=== PATIENT | female | born 1980 | race Caucasian/White ===

== ENCOUNTER 2016-08-23 01:32 | Emergency (ER) | payer MEDICAID | END 2016-08-23 05:00 | disposition home or self-care (01) | DX: R10.11 Right upper quadrant pain (principal); R10.31 Right lower quadrant pain; F17.200 Nicotine dependence, unspecified, uncomplicated ==

== ENCOUNTER 2017-06-29 23:11 | Emergency (ER) | payer MEDICAID ==
[2017-06-29 23:48] LABS: BILIRUBIN,URINE NEGATIVE (NEGATIVE); GLUCOSE, URINE (UA) NEGATIVE (NEGATIVE); KETONES,URINE (UA) NEGATIVE (NEGATIVE); LEUKOCYTE ESTERASE, URINE NEGATIVE (NEGATIVE); NITRITE,URINE NEGATIVE (NEGATIVE); OCCULT BLOOD,URINE LARGE (NEGATIVE); PROTEIN,URINE TRACE mg/dL (NEGATIVE); UROBILINOGEN,URINE 0.2 (NORMAL) E.U./dL (NORMAL)
[2017-06-29 23:50] LABS: CLARITY,URINE CLEAR (CLEAR); HCG UR QUAL POSITIVE
[2017-06-29] MEDS ORDERED: SODIUM CHLORIDE 0.9% 1,000 ML IV ONE (23:53)
[2017-06-30 00:19] LABS: BACTERIA,URINE None Seen /HPF (None Seen); MUCUS,URINE Marked Strands; SQUAMOUS EPITHELIAL CELL,UR RARE Squamous (<= Few)
[2017-06-30 00:20] LABS: BASOPHILS # (AUTO) 0.1 10^3/uL (0.0-0.1); BASOPHILS % (AUTO) 0.7 %; EOSINOPHILS # (AUTO) 0.2 10^3/uL (0.0-0.7); EOSINOPHILS % (AUTO) 1.3 %; HGB - HEMOGLOBIN 13.2 g/dL (12.0-16.0); LYMPHOCYTES # (AUTO) 2.1 10^3/uL (1.5-3.5); LYMPHOCYTES % (AUTO) 13.6 %; MEAN CORPUSCULAR HGB CONC 32.9 g/dL (32.0-36.0); MONOCYTES # (AUTO) 1.3 10^3/uL (0.0-1.0); MONOCYTES % (AUTO) 8.6 %; NEUTROPHILS # (AUTO) 11.7 10^3/uL (1.5-6.6); NEUTROPHILS % (AUTO) 75.8 %; PLT - PLATELET COUNT 264 10^3/uL (130-450); RED BLOOD COUNT 5.09 10^6/uL (4.20-5.40); RED CELL DISTRIBUTION WIDTH 15.6 % (12.0-15.0); WHITE BLOOD COUNT 15.4 x10^3/uL (4.8-10.8)
[2017-06-30 00:28] LABS: ALBUMIN 3.2 g/dL (3.2-5.5); ALBUMIN/GLOBULIN RATIO 0.7 (1.0-2.2); BILIRUBIN,TOTAL 0.5 mg/dL (0.2-1.0); CALCIUM 9.7 mg/dL (8.5-10.3); CREATININE 0.6 mg/dL (0.4-1.0); TOTAL PROTEIN 7.5 g/dL (6.7-8.2)
[2017-06-30] MEDS ORDERED: ACETAMINOPHEN 500 MG TABLET PO STA (00:51)
[2017-06-30] MEDS ORDERED: LIDOCAINE PATCH 5% TOP STA (00:51)
--- NOTE | 2017-06-30 00:53 | ED Physician Documentation ---
PD HPI TRUNK INJURY - Stated complaint Stated Complaint: COUGH/RT FLANK PX - Chief complaint Chief Complaint: Resp - History obtained from History obtained from: Patient, Family - History of Present Illness Location: Right chest Type of injury: Other (cough) Timing - onset: Today Timing - details: Abrupt onset, Still present Quality: Pain, Spasm Worsened by: Moving, Palpating Associated symtptoms: No: Numbness, Tingling, Swelling Where injury occured: Home Similar symptoms before: Diagnosis Recently seen: Not recently seen - Additional information Additional information: patient is a 36 year old female with no significant past medical history who is presenting to the emergency department for right sided rib pain. patient states that she had been coughing a lot recently. Today patient coughed hurting the right axillary region. Review of Systems Constitutional: denies: Fever, Chills Eyes: denies: Discharge, Irritation Ears: denies: Ear pain, Drainage/discharge Nose: denies: Rhinorrhea / runny nose, Congestion Throat: denies: Sore throat Cardiac: denies: Chest pain / pressure, Palpitations Respiratory: reports: Cough. denies: Wheezing GI: reports: Nausea. denies: Abdominal Pain, Vomiting, Constipation, Diarrhea : denies: Dysuria, Frequency, Hematuria, Discharge, Vaginal bleeding Skin: denies: Rash, Lesions Neurologic: denies: Generalized weakness, Focal weakness Immunocompromised: denies: Immunocompromised PD PAST MEDICAL HISTORY - Past Medical History Past Medical History: Yes Psych: Anxiety - Past Surgical History Past Surgical History: Yes General: Appendectomy - Present Medications Home Medications: Ambulatory Orders Medication Instructions Recorded Confirmed Lidocaine Patch 5% [Lidoderm Patch] 1 each TOP DAILY #20 patch 06/30/17 - Allergies Allergies/Adverse Reactions: Allergies Allergy/AdvReac Type Severity Reaction Status Date / Time nabumetone [From Relafen] Allergy Mild Hallucinati Verified 06/29/17 23:19 ons Sulfa (Sulfonamide Allergy Unknown unknown Verified 06/29/17 23:19 Antibiotics) - Social History Does the pt smoke?: Yes Smoking Status: Current every day smoker Does the pt drink ETOH?: No Does the pt have substance abuse?: Yes - Immunizations Immunizations are current?: Yes - POLST Patient has POLST: No PD ED PE NORMAL - Vitals Vital signs reviewed: Yes - General General: Alert and oriented X 3 - HEENT HEENT: Atraumatic, PERRL - Neck Neck: Supple, no meningeal sign - Cardiac Cardiac: RRR, No murmur - Respiratory Respiratory: No respiratory distress - Abdomen Abdomen: Soft, Non tender, Non distended - Female Female : Pt declined - Derm Derm: Normal color - Extremities Extremities: No deformity, Normal ROM s pain, No edema - Neuro Neuro: Alert and oriented X 3, No motor deficit, No sensory deficit, Normal speech - Psych Psych: Normal mood PD ED PE EXPANDED - General General: In Pain - HEENT HEENT: Dry mucous membranes - Cardiac Cardiac: Chest wall TTP (tenderness to palpation of right lateral chest, no step off, no gross deformity) Results - Vitals Vitals: Vital Signs - 24 hr 06/29/17 06/30/17 23:15 01:09 Temperature 36.7 C 36.9 C Heart Rate 105 H 100 Respiratory 20 20 Rate Blood Pressure 153/87 H 158/77 H O2 Saturation 100 100 Oxygen O2 Source Room air - Labs Labs: Laboratory Tests 06/29/17 06/29/17 06/29/17 00:04 00:04 00:04 WBC 15.4 H RBC 5.09 Hgb 13.2 Hct 40.2 MCV 79.0 L MCH 26.0 L MCHC 32.9 RDW 15.6 H Plt Count 264 MPV 9.0 Neut # 11.7 H Lymph # 2.1 Weakley # 1.3 H Eos # 0.2 Baso # 0.1 Absolute Nucleated RBC 0.02 Nucleated RBC % 0.1 Sodium 135 Potassium 3.9 Chloride 99 L Carbon Dioxide 24 Anion Gap 12.0 BUN 12 Creatinine 0.6 Estimated GFR (MDRD) 112 Glucose 138 H Calcium 9.7 Total Bilirubin 0.5 AST 18 ALT 19 Alkaline Phosphatase 71 Total Protein 7.5 Albumin 3.2 Globulin 4.3 H Albumin/Globulin Ratio 0.7 L Lipase 20 L HCG, Quant 06490.00 Urine Color Urine Clarity Urine pH Ur Specific Golden Urine Protein Urine Glucose (UA) Urine Ketones Urine Occult Blood Urine Nitrite Urine Bilirubin Urine Urobilinogen Ur Leukocyte Esterase Urine RBC Urine WBC Ur Squamous Epith Cells Urine Bacteria Urine Mucus Ur Microscopic Review Urine Culture Comments Urine HCG, Qual 06/29/17 23:34 WBC RBC Hgb Hct MCV MCH MCHC RDW Plt Count MPV Neut # Lymph # Weakley # Eos # Baso # Absolute Nucleated RBC Nucleated RBC % Sodium Potassium Chloride Carbon Dioxide Anion Gap BUN Creatinine Estimated GFR (MDRD) Glucose Calcium Total Bilirubin AST ALT Alkaline Phosphatase Total Protein Albumin Globulin Albumin/Globulin Ratio Lipase HCG, Quant Urine Color YELLOW Urine Clarity CLEAR Urine pH 6.0 Ur Specific Golden >=1.030 H Urine Protein TRACE Urine Glucose (UA) NEGATIVE Urine Ketones NEGATIVE Urine Occult Blood LARGE H Urine Nitrite NEGATIVE Urine Bilirubin NEGATIVE Urine Urobilinogen 0.2 (NORMAL) Ur Leukocyte Esterase NEGATIVE Urine RBC 6-10 H Urine WBC 4-5 Ur Squamous Epith Cells RARE Squamous Urine Bacteria None Seen Urine Mucus Marked Strands Ur Microscopic Review INDICATED Urine Culture Comments NOT INDICATED Urine HCG, Qual POSITIVE - Rads (name of study) pelvic ultrasound Radiology: Final report received (viable iup), EMP read contemporaneously PD MEDICAL DECISION MAKING - ED course Complexity details: reviewed old records, reviewed results, re-evaluated patient , considered differential, d/w patient, d/w family ED course: Patient was seen and examined at bedside. urine was collected and checked. Patient was found to be . labs were drawn and ultrasound was ordered. Patient was made aware of the findings. Patient was treated with tylenol and lidocaine patch. The first attempt at IV was unsuccessful and patient stated that she would just do oral hydration. patient did have blood in her urine and was made aware that the symptoms could be secondary to renal colic. Patient was given detailed discharge and follow up instructions. patient required no further work up and was stable for discharge with outpatient follow up. Departure - Departure Disposition: 01 Home, Self Care Clinical Impression: Condition: Good Instructions: ED Preg Established Normal Sxs Follow-Up: Uriel Smith MD [Provider Admit Priv/Credential] - Tomorrow Prescriptions: Lidocaine Patch 5% [Lidoderm Patch] 1 each TOP DAILY #20 patch Comments: You were found to be today with a viable intrauterine . Due to the we are limited in our pain management options. You can take tylenol and use your lidoderm patch. You should stay well hydrated because there is a chance that there is kidney stone. You should follow up with your ob , if you do not have one you can call Dr. Smith's office to schedule a follow up appointment. You are approximately 6 weeks by dates. You can return to the emergency department at any time for new, worsening or uncontrollable symptoms. Discharge Date/Time: 06/30/17 01:11
--- NOTE | 2017-06-30 01:01 | Ultrasound Preliminary Report ---
Exam: US OB FIRST TRIMESTER IMPRESSION: Single live intrauterine at 6 weeks 3 days by crown-rump length -- for an estim ated delivery date of 02/20/2018. No acute abnormality seen. [facility] SITE ID: [id number]
--- NOTE | 2017-06-30 01:09 | Ultrasound Report ---
EXAM: FIRST TRIMESTER OBSTETRIC ULTRASOUND (Less than 11 weeks) EXAM DATE: 06/30/2017 12:47 AM. CLINICAL HISTORY: , vaginal bleeding. LMP: 05/09/2017, 7 weeks 3 days. COMPARISONS: None. TECHNIQUE: Transabdominal ultrasound examination with static image documentation. FINDINGS: Gestational Sac: An intrauterine fluid-filled sac contains both an embryo and yolk sac. Embryo: CRL (crown-rump length) measures 5 mm corresponding to an estimated gestational age of 6 week s 3 days. Heart Rate: 120 beats per minute. Placenta: Not visible at this gestational age. Amniotic fluid: Not accurately assessed at this gestational age. Uterus: Unremarkable anteverted appearance. Cervix: Closed. Ovaries: Visualized portion of the right ovary appears normal. Left ovary reportedly not seen. No drake ge taken of the left adnexa. Exam reportedly limited due to patient coughing and crying. Free Fluid: None. Other: None. IMPRESSION: Single live intrauterine at 6 weeks 3 days by crown-rump length -- for an estimated deliver y date of 02/20/2018. No acute abnormality seen. [facility] Referring Provider Line: [phone] SITE ID: [id number]
[2017-06-30 01:11] VITALS: BP 158/77
== END 2017-06-30 01:11 | disposition home or self-care (01) ==
LOC: ED 23:11
DX: O26.891 Other specified pregnancy related conditions, first trimester (principal); R10.31 Right lower quadrant pain; O99.331 Smoking (tobacco) complicating pregnancy, first trimester; Z3A.01 Less than 8 weeks gestation of pregnancy
CPT/HCPCS: 36415; 76801; 80053; 81001; 81025; 83690; 84702; 85025; 99283; A9270; 81003; 87086

== ENCOUNTER 2018-01-17 07:08 | Outpatient (CLI) | payer MEDICAID ==
[2018-01-17 09:32] LABS: MUDS CUTOFF CONCENTRATIONS CUTOFF CONC BELOW:
[2018-01-17 09:36] LABS: BASOPHILS # (AUTO) 0.1 10^3/uL (0.0-0.1); BASOPHILS % (AUTO) 0.5 %; EOSINOPHILS # (AUTO) 0.2 10^3/uL (0.0-0.7); EOSINOPHILS % (AUTO) 0.8 %; HGB - HEMOGLOBIN 11.4 g/dL (12.0-16.0); LYMPHOCYTES # (AUTO) 2.1 10^3/uL (1.5-3.5); LYMPHOCYTES % (AUTO) 10.3 %; MEAN CORPUSCULAR HEMOGLOBIN 26.8 pg (27.0-31.0); MEAN CORPUSCULAR HGB CONC 33.8 g/dL (32.0-36.0); MEAN CORPUSCULAR VOLUME 79.3 fL (81.0-99.0); MEAN PLATELET VOLUME 8.9 fL (7.9-10.8); MONOCYTES # (AUTO) 1.2 10^3/uL (0.0-1.0); MONOCYTES % (AUTO) 5.8 %; NEUTROPHILS # (AUTO) 17.2 10^3/uL (1.5-6.6); NEUTROPHILS % (AUTO) 82.6 %; PLT - PLATELET COUNT 264 10^3/uL (130-450); RED BLOOD COUNT 4.25 10^6/uL (4.20-5.40); RED CELL DISTRIBUTION WIDTH 15.2 % (12.0-15.0); WHITE BLOOD COUNT 20.8 x10^3/uL (4.8-10.8)
[2018-01-17 09:47] LABS: AMPHETAMINE SCREEN,URINE NEGATIVE (NEGATIVE); BENZODIAZEPINES SCREEN, URINE NEGATIVE (NEGATIVE); COCAINE SCREEN URINE NEGATIVE (NEGATIVE); METHAMPHETAMINES SCREEN, URINE NEGATIVE (NEGATIVE); OPIATE SCREEN, URINE NEGATIVE (NEGATIVE); TRICYCLIC ANTIDEPRESSANT,URINE NEGATIVE (NEGATIVE)
[2018-01-17 09:48] LABS: METHADONE SCREEN, URINE NEGATIVE (NEGATIVE); OXYCODONE SCREEN, URINE NEGATIVE (NEGATIVE); PROPOXYPHENE SCREEN, URINE NEGATIVE (NEGATIVE)
[2018-01-17 09:59] LABS: CREATININE,URINE 121.9 mg/dL; PROTEIN/CREATININE RATIO,URINE 0.2 (<=0.2)
[2018-01-17 10:00] LABS: BILIRUBIN,URINE NEGATIVE (NEGATIVE); GLUCOSE, URINE (UA) 250 mg/dL (NEGATIVE); KETONES,URINE (UA) TRACE mg/dL (NEGATIVE); LEUKOCYTE ESTERASE, URINE TRACE (NEGATIVE); NITRITE,URINE NEGATIVE (NEGATIVE); OCCULT BLOOD,URINE NEGATIVE (NEGATIVE); PH,URINE 6.5 PH (5.0-7.5); PROTEIN,URINE TRACE mg/dL (NEGATIVE); UROBILINOGEN,URINE 0.2 (NORMAL) E.U./dL (NORMAL)
[2018-01-17 10:09] LABS: PLATELET ESTIMATE, MANUAL NORMAL (130-450,000) (NORMAL); PLATELET MORPHOLOGY NORMAL APPEARANCE (NORMAL)
[2018-01-17 10:14] LABS: CLARITY,URINE HAZY (CLEAR)
[2018-01-17 10:15] LABS: AMORPHOUS SEDIMENT,UR Few /LPF; BACTERIA,URINE Few /HPF (None Seen); MUCUS,URINE Few Strands; RBC,URINE None Seen /HPF (0-5); SQUAMOUS EPITHELIAL CELL,UR FEW Squamous (<= Few)
[2018-01-17 11:39] VITALS: BP 141/90
[2018-01-17 11:41] LABS: HB2 TOTAL 11.8 g/dL; HEMOGLOBIN A1C 0.57 g/dL; HEMOGLOBIN A1C % 6.6 % (4.6-6.2)
--- NOTE | 2018-01-17 12:29 | Ultrasound Report ---
Procedure Date: 01/17/2018 Accession Number: [id number] / [id number] Procedure: US - OB F/U or Repeat CPT Code: FULL RESULT: EXAM: COMPLETE OBSTETRICAL ULTRASOUND EXAM DATE: 01/17/2018 10:53 AM. CLINICAL HISTORY: dating, position, MIKE. COMPARISON: First trimester ultrasound 06/30/2017. TECHNIQUE: Real-time sonographic evaluation of the fetus performed by the high school librarian. Multiple herbicide service sales representative static images were saved for review. DATING: LMP unknown. EGA 35 weeks 1 day with KALI 02/20/2018 based on first ultrasound of 06/30/2017. EGA 37 weeks 1 day with KALI 02/06/2018 based on the current ultrasound. GENERAL EVALUATION White . Cardiac activity: 128 bpm. movement: Visualized. Presentation: Breech. Placenta: Posterior maternal left position. No convincing evidence of placenta previa. Umbilical cord: 3 vessel cord. Central placental cord origin. Amniotic fluid: MIKE 15.4 cm. MVP 5.0 cm. BIOMETRY Bi-Parietal Diameter (BPD): 8.7 cm, 35 weeks 3 days Head Circumference (HC): 33.3 cm, 38 weeks 0 days Abdominal Circumference (AC): 35.0 cm, 38 weeks 6 days Femur Length (FL): 7.2 cm, 36 weeks 5 days Estimated Weight: 3347 gm, 98 percentile for 35 weeks 1 day. ANATOMY Limited visualization of structures due to gestational age and maternal body habitus. No gross abnormality. MATERNAL STRUCTURES Uterus: Unremarkable. Cervix: Obscured. Free fluid: None. IMPRESSION: 1. White live intrauterine with gestational age 35 weeks 1 day based on first ultrasound of 06/30/2017 (KALI 02/20/2018). 2. size is greater than expected for gestational age; the fetus is at risk for macrosomia. EFW 98%. 3. Limited visualization of structures due to gestational age and maternal body habitus. No gross abnormality. 4. Breech presentation. MIKE 15.4 cm, normal. Cervix is not visualized. [facility]
--- NOTE | 2018-01-17 18:44 | HISTORY & PHYSICAL EXAMINATION ---
DATE OF SERVICE: 01/17/2018 Physician: Uriel Smith MD IDENTIFICATION: A 37-year-old G6, P3, AB2 female whose EDC is 02/20/2018 by ultrasound during the fi rst trimester. This makes her 35.1 weeks. CHIEF COMPLAINT: Contractions. HISTORY OF PRESENT ILLNESS: Patient developed contractions at roughly 2:00 this morning. She lives in [place] but came over here to [facility] because of a court date for her spouse. She denies a ny loss of fluid, bleeding. She notes good motion. She has had no OB care. She has had 1 ear ly visit during June of this year as well as November and then again in January. She has had no labs. She has had no other workup. She has a history of gestational diabetes with the last . Hugh ewing has a history of a delivery in the past. She also appears to have a history of hypertensio n and that she had high blood pressure at 29 weeks. She denies any history of preeclampsia with prev ious pregnancies. PAST MEDICAL HISTORY: Apparent hypertension as well as gestational diabetes. PAST SURGICAL HISTORY: Appendectomy in 2002. ALLERGIES: SULFA WELL NABUMETONE. SHE IS ALSO ALLERGIC TO TURKEY. HABITS: Patient smokes 1 cigarette per day. Denies use of tobacco, street or addictive drugs, or te trahydrocannabinol. SOCIAL HISTORY: Patient is engaged, lives with significant other. [facility] 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 REVIEW OF SYSTEMS: Denies any headaches, has spots when she stands up quickly. PHYSICAL EXAMINATION VITAL SIGNS: Blood pressure 130-150 with diastolics in the 70s-90s. HEENT: Pupils equal and round. Extraocular muscles intact. There is no evidence of any scleral ict erus. HEART: Regular rate and rhythm without murmurs. LUNGS: Lung carter are clear without rales or wheezes. ABDOMEN: Soft, nontender without evidence of any organomegaly. PELVIC: She has a palpable fundal uterus. LABORATORY DATA: Patient's CBC shows a white count of 20.8, hemoglobin is 11.4, hematocrit 33.7, velasquez telets are 264. Her hemoglobin A1c is 6.6 and a random blood sugar is 162. Urine showed a protein c reatinine ratio of 0.2. The remainder of her labs was normal. She had an ultrasound which showed a large , which was in the 98th percentile for growth. There was good amniotic fluid. The infant was in a breech presentation. IMPRESSION 1. A 37-year-old G6, P3, AB2 female who is 35.1 weeks with estimated date of confinement of 02/21/20 18 by first trimester ultrasound. Patient appears to have some chronic hypertension and that has bee n documented earlier on her than in this . I do not believe she has preeclampsia in that he r protein creatinine ratio is normal and her uric acid was 4.0. 2. Gestational diabetes, which is not controlled. She has not had any 50 gram Glucola testing; huggins eufemia, hemoglobin A1c is 6.6. 3. No OB care. PLAN: I have started the patient on labetalol 100 mg p.o. daily and since I am unable to follow up o n this, I did not use a full dose. We will also start her on glyburide 2.5 mg daily. Once again, be cause of the inability to follow up on her, I felt that this would be an initial starting dose but ne eds to be adjusted. I have also strongly recommended the patient to engage in OB care in [facility] in that that is where she lives. She would not be benitez to come here in that there would be a ferry trip between here and her home. Patient was strongly encouraged to do this. I contacted 2 O B groups in [place], neither of which was able to assume her care, one of which was done because of f ull deliveries in February and the other because of insurance concerns. I have told her that she ne eds to contact her insurance and see if she can get this changed. TD: 01/17/2018 14:39
== END 2018-01-17 13:40 | disposition home or self-care (01) ==
LOC: WFO 07:08 → FBP 07:10 → WFO 13:40
PROVIDERS: ATTEND Obstetrics & Gynecology
DX: O10.913 Unspecified pre-existing hypertension complicating pregnancy, third trimester (principal); O24.419 Gestational diabetes mellitus in pregnancy, unspecified control; O09.33 Supervision of pregnancy with insufficient antenatal care, third trimester; O09.213 Supervision of pregnancy with history of pre-term labor, third trimester; O09.523 Supervision of elderly multigravida, third trimester; Z3A.35 35 weeks gestation of pregnancy; O99.333 Smoking (tobacco) complicating pregnancy, third trimester; F17.210 Nicotine dependence, cigarettes, uncomplicated; O32.1XX0 Maternal care for breech presentation, not applicable or unspecified
CPT/HCPCS: 36415; 76816; 80306; 81001; 82570; 83036; 83615; 84156; 84450; 84550; 85025; 87086; 99214